=== PATIENT | female | born 1990 | race Caucasian/White ===

== ENCOUNTER 2021-05-23 23:21 | Emergency (ER) | payer OTHER ==
[2021-05-24 00:09] LABS: BASOPHIL 0.4 % (0-2); EOSINOPHIL 0.8 % (0-5); HCT 38.5 % (37.0-47.0); HGB 12.7 g/dl (12.5-16.0); LYMPHOCYTE 30.2 % (15-48); MCH 28.9 pg (25.0-31.0); MCV 87.7 fL (78.0-100.0); MONOCYTE 7.5 % (0-12); MPV 10.9 fL (6.0-9.5); NEUTROPHIL 60.5 % (41-80); NRBC 0; PLT 226 K/uL (150-400); RBC 4.39 M/uL (4.20-5.40); RDW 14.6 % (11.5-14.0); WBC 16.8 K/uL (4.0-10.5)
[2021-05-24 00:57] LABS: CREATININE 0.58 mg/dL (0.51-0.95); POTASSIUM 4.4 mmol/L (3.5-5.1)
[2021-05-24 01:02] LABS: ALBUMIN 3.2 g/dL (3.4-5.0); BILIRUBIN - TOTAL 0.3 mg/dL (0.2-1.0); GLOBULIN (CALCULATION) 3.4 g/dL; TOTAL PROTEIN 6.6 g/dL (6.4-8.2)
[2021-05-24 02:07] LABS: BILIRUBIN NEGATIVE (NEGATIVE); BLOOD 3+ Ery/uL (NEGATIVE); CLARITY CLEAR (CLEAR); COLOR YELLOW (YELLOW); GLUCOSE (U) NORMAL (NORMAL); LEUKOCYTES NEGATIVE Leu/uL (NEGATIVE); NITRITE NEGATIVE (NEGATIVE); PROTEIN TRACE (LOW) mg/dL (NEGATIVE); SPECIFIC GRAVITY >=1.030 (1.001-1.030); UROBILINOGEN 0.2 mg/dL (0.2-1.0)
[2021-05-24 02:14] LABS: BACTERIA TRACE; CALCIUM OXALATE CRYSTALS MODERATE; URINARY RBC 20-50
== END 2021-05-24 01:50 | disposition home or self-care (01) ==
LOC: FER 23:21
PROVIDERS: Emergency Medicine
DX: O20.0 Threatened abortion (principal); Z88.1 Allergy status to other antibiotic agents; Z3A.11 11 weeks gestation of pregnancy
CPT/HCPCS: 36415; 76801; 80053; 81001; 84702; 85025; 86850; 86900; 86901

== ENCOUNTER 2021-11-23 12:57 | Inpatient (IN) | payer OTHER ==
[~2021-11-23] VITALS: Ht 162.6 cm; Wt 146.5 kg
[2021-11-23 16:15] LABS: BILIRUBIN NEGATIVE (NEGATIVE); BLOOD NEGATIVE Ery/uL (NEGATIVE); CLARITY CLEAR (CLEAR); COLOR YELLOW (YELLOW); GLUCOSE (U) NORMAL (NORMAL); LEUKOCYTES NEGATIVE Leu/uL (NEGATIVE); NITRITE NEGATIVE (NEGATIVE); PROTEIN NEGATIVE (NEGATIVE)
[2021-11-23 19:11] LABS: HCT 34.2 % (37.0-47.0); HGB 11.1 g/dl (12.5-16.0); MCH 26.9 pg (25.0-31.0); MCHC 32.5 g/dL (32.0-36.0); MCV 82.8 fL (78.0-100.0); MPV 12.4 fL (6.0-9.5); RBC 4.13 M/uL (4.20-5.40); RDW 14.1 % (11.5-14.0); WBC 10.5 K/uL (4.0-10.5)
[2021-11-25 05:43] LABS: HCT 27.5 % (37.0-47.0); HGB 8.7 g/dl (12.5-16.0); MCH 26.5 pg (25.0-31.0); MCHC 31.6 g/dL (32.0-36.0); MCV 83.8 fL (78.0-100.0); MPV 12.1 fL (6.0-9.5); RBC 3.28 M/uL (4.20-5.40); RDW 14.1 % (11.5-14.0); WBC 12.7 K/uL (4.0-10.5)
[2021-11-26] MEDS ORDERED: COLACE100 MG PO (07:19)
[2021-11-26] MEDS ORDERED: IBUPROFEN800 M1 PO (07:19)
[2021-11-26] MEDS ORDERED: FEOSOL325 MG PO (07:19)
[2021-11-26] MEDS ORDERED: PRENATAL FORMU1 EACH PO (07:19)
== END 2021-11-26 09:38 | disposition home or self-care (01) | DRG 806 ==
LOC: FOD 12:57 → FOB 13:00 → FOD 17:17 → FOB 17:18
PROVIDERS: ADMIT Obstetrics & Gynecology
PROC: 10E0XZZ Delivery of Products of Conception, External Approach (ICD-10-PCS; principal; 2021-11-24)
PROC: 0KQM0ZZ Repair Perineum Muscle, Open Approach (ICD-10-PCS; 2021-11-24)
PROC: 10907ZC Drainage of Amniotic Fluid, Therapeutic from Products of Conception, Via Natural or Artificial Opening (ICD-10-PCS; 2021-11-24)
DX: O76 Abnormality in fetal heart rate and rhythm complicating labor and delivery (principal); D62 Acute posthemorrhagic anemia; Z37.0 Single live birth; Z3A.37 37 weeks gestation of pregnancy; Z20.822 Contact with and (suspected) exposure to COVID-19; O99.214 Obesity complicating childbirth; E66.01 Morbid (severe) obesity due to excess calories; O99.02 Anemia complicating childbirth; O70.1 Second degree perineal laceration during delivery; Z98.84 Bariatric surgery status; Z79.899 Other long term (current) drug therapy
CPT/HCPCS: 36415; 76815; 76818; 81003; 86850; 86900; 86901; J2916; J7120; U0002